=== PATIENT | female | born 1960 | race Caucasian/White ===

== ENCOUNTER 2017-12-17 07:56 | Inpatient (IN) | payer BC ==
[~2017-12-17] VITALS: Ht 160 cm; Wt 105.6 kg
[2017-12-17 08:42] LABS: BASOPHIL (%) 0.9 % (0-1); BASOPHIL COUNT 0.1 K/uL (0-0.1); EOSINOPHIL COUNT 0.1 K/uL (0-0.3); HEMOGLOBIN 13.6 G/DL (11.9-15.5); IMMATURE GRANULOCYTE (%) 0.3 % (0.0-0.7); LYMPHOCYTE (%) 28.5 % (15-42); LYMPHOCYTE COUNT 2.6 K/uL (1.0-2.8); MCH 31.3 PG (29.0-34.0); MCHC 32.4 G/DL (30.0-36.0); MCV 96.8 FL (83-99); MONOCYTE (%) 8.6 % (3-12); MONOCYTE COUNT 0.8 K/uL (0-0.8); NEUTROPHIL (%) 60.7 % (45-76); NEUTROPHIL COUNT 5.6 K/uL (1.8-6.4); PLATELET COUNT 238 K/uL (156-360); RBC DIS.WIDTH-CV 14.4 % (11.8-14.6); RBC DIS.WIDTH-SD 51.1 % (39-53); RED BLOOD COUNT 4.34 M/uL (3.80-5.20); WHITE BLOOD COUNT 9.2 K/uL (4.1-10.2)
[2017-12-17 08:49] LABS: INTER. NORMALIZED RATIO 1.1
[2017-12-17 08:51] LABS: PTT 26.5 SEC (25-37)
[2017-12-17 09:16] LABS: CHLORIDE 109 mEq/L (99-109); POTASSIUM 4.4 mEq/L (3.7-5.4); SODIUM 142 mEq/L (136-147)
[2017-12-17 09:17] LABS: MAGNESIUM 2.4 mg/dL (1.3-2.7)
[2017-12-17 09:18] LABS: GLUCOSE 129 mg/dL (70-99)
[2017-12-17 09:22] LABS: CREATININE 0.9 mg/dL (0.6-1.3); GFR ESTIMATE (CALCULATED) > 59 mL/min/
[2017-12-17 09:23] LABS: UREA NITROGEN (BUN) 19 mg/dL (9-23)
[2017-12-17 09:27] LABS: TROP-I INTERPRETATION NEGATIVE; TROPONIN-I 0.04 ng/mL (0.0-0.30)
[2017-12-17] MEDS ORDERED: LISINOPRIL20 MG PO (11:58)
[2017-12-17] MEDS ORDERED: XYZAL5 MG PO (11:58)
[2017-12-17] MEDS ORDERED: PROZAC40 MG PO (11:59)
[2017-12-17] MEDS ORDERED: ALPRAZOLAM2 MG PO (11:59)
[2017-12-17] MEDS ORDERED: FLEXERIL10 MG PO (11:59)
[2017-12-17] MEDS ORDERED: ADULT ASPIRIN R81 MG PO (12:00)
[2017-12-17] MEDS ORDERED: METFORMIN HCL500 MG PO (12:00)
[2017-12-17 15:27] LABS: TROP-I INTERPRETATION NEGATIVE; TROPONIN-I 0.29 ng/mL (0.0-0.30)
[2017-12-17 19:10] VITALS: BP 136/79
[2017-12-17 22:06] LABS: TROP-I INTERPRETATION INDETERMINATE; TROPONIN-I 0.31 ng/mL (0.0-0.30)
[2017-12-18] VITALS: BP 100/56
[2017-12-18 03:06] VITALS: BP 100/50
[2017-12-18 07:53] VITALS: BP 144/78
[2017-12-18 12:47] VITALS: BP 134/67
[2017-12-18 12:48] LABS: ALBUMIN 3.5 G/DL (3.2-4.8); ALKALINE PHOSPHATASE 54 IU/L (3-129); ALT (GPT) 9 IU/L (3-49); AST (GOT) 13 IU/L (2-34); CHLORIDE 110 MEQ/L (99-109); CREATININE 0.8 MG/DL (0.6-1.3); GFR ESTIMATE (CALCULATED) > 59 mL/min/; GLUCOSE 119 mg/dL (70-99); POTASSIUM 4.4 MEQ/L (3.7-5.4); SODIUM 143 MEQ/L (136-147); TOTAL BILIRUBIN 0.4 MG/DL (0.0-1.0); TOTAL PROTEIN 5.6 G/DL (6.4-8.3); UREA NITROGEN (BUN) 13 mg/dL (9-23)
[2017-12-18] MEDS ORDERED: METOPROLOL SUCC25 MG PO (14:05)
== END 2017-12-18 16:08 | disposition home or self-care (01) | DRG 309 ==
LOC: EME 07:56 → EDOF 12:35 → 4EAST 12:35 → ENRESERV 12:37 → 4EAST 18:07
PROVIDERS: Emergency Medicine; Hospitalist; Internal Medicine
DX: I47.1 Supraventricular tachycardia (principal); I44.7 Left bundle-branch block, unspecified; E11.9 Type 2 diabetes mellitus without complications; I10 Essential (primary) hypertension; E66.9 Obesity, unspecified; F17.210 Nicotine dependence, cigarettes, uncomplicated; Z68.41 Body mass index [BMI] 40.0-44.9, adult; Z82.49 Family history of ischemic heart disease and other diseases of the circulatory system
CPT/HCPCS: 71045; 71275; 80048; 80053; 82948; 83036; 83735; 84484; 85025; 85610; 85730; 93005; 93306; 99281; 99285; J0153; J1650; J7040